=== PATIENT | male | born 2000 | race Caucasian/White ===

== ENCOUNTER 2022-03-21 18:46 | Emergency (ER) | payer OTHER ==
[~2022-03-21] VITALS: Ht 185.4 cm; Wt 91.9 kg
[2022-03-21 18:48] VITALS: BP 139/88
[2022-03-21] MEDS ORDERED: AMOX875T2 PO (20:39)
== END 2022-03-21 20:50 | disposition home or self-care (01) ==
LOC: M ED 18:46
DX: H66.92 Otitis media, unspecified, left ear (principal); H61.22 Impacted cerumen, left ear